=== PATIENT | male | born 1970 | race Caucasian/White ===

== ENCOUNTER 2021-05-01 08:27 | Emergency (ER) | payer SELFPAY ==
[~2021-05-01] VITALS: Ht 177.8 cm; Wt 73.0 kg
--- NOTE | 2021-05-01 08:29 | NUR ---
TO ER BED 9, BIBRA [address] FRM HOME, ALTERED MENTAL STATE. AUNT CALLED PARAMEDICS FOR POSSIBLE METH USE. NON VERBAL, RESPONSE TO PAIN, CONNECTED TO MONITOR, MD AT BEDSIDE FOR EVAL
--- NOTE | 2021-05-01 08:41 | NUR ---
IV ESTABLISHED L AC 20G. LABS COLLECTED AND SENT. CONVERTED TO SALINE LOCK
--- NOTE | 2021-05-01 08:48 | NUR ---
URINE SAMPLE COLLECTED AND SENT
[2021-05-01 09:06] LABS: BASOPHILS % (AUTO) 0.4 % (0.0-2.0); EOSINOPHILS % (AUTO) 0.6 % (0.0-6.0); HEMATOCRIT 39 % (39-51); HEMOGLOBIN 13.2 g/dL (13.5-17.5); MEAN CORPUSCULAR HGB CONC 34 g/dl (31.0-36.0); MEAN CORPUSCULAR VOLUME 99 fL (80-96); MONOCYTES # (AUTO) 0.8 K/uL (0.1-1.30); MONOCYTES % (AUTO) 10.1 % (2.0-12.0); NEUTROPHILS # (AUTO) 5.6 K/uL (1.8-8.9); NEUTROPHILS % (AUTO) 74.9 % (43.0-81.0); PLATELET COUNT (AUTO) 354 K/uL (150-450); RED BLOOD CELL COUNT(AUTO) 3.98 MIL/uL (4.5-6.0); WHITE BLOOD COUNT (AUTO) 7.5 K/uL (4.3-11.0)
[2021-05-01 09:13] LABS: BILIRUBIN,URINE SMALL (NEGATIVE); COLOR,URINE YELLOW (YELLOW); LEUKOCYTE ESTERASE ,URINE NEGATIVE (NEGATIVE); NITRITE, URINE NEGATIVE (NEGATIVE); PH,URINE 5.5 (5.0-8.0); PROTEIN,URINE TRACE mg/dl (NEGATIVE); UGLUCOSE NEGATIVE (NEGATIVE)
--- NOTE | 2021-05-01 09:15 | NUR ---
Chetan bennett in [facility] - 05/01/21 at 0922 by ASHLY COVID TEST COLLECTED AND SENT
--- NOTE | 2021-05-01 09:18 | NUR ---
COVID SWAB DONE AND SENT TO LAB
[2021-05-01 09:35] LABS: ALANINE AMINOTRANSFERASE 70 U/L (12-78); ALBUMIN 3.7 g/dL (3.4-5.0); ALCOHOL, BLOOD < 3 mg/dL (0-0); ALKALINE PHOSPHATASE 56 U/L (46-116); ASPARTATE AMINOTRANSFERASE 79 U/L (15-37); BILIRUBIN,DIRECT 0.1 mg/dL (0.0-0.2); BILIRUBIN,TOTAL 0.5 mg/dL (0.2-1.0); CALCIUM, SERUM 8.5 mg/dL (8.5-10.1); CARBON DIOXIDE 25 mmol/L (21-32); CHLORIDE 104 mmol/L (98-107); GLUCOSE 105 mg/dL (74-106); POTASSIUM 3.5 mmol/L (3.5-5.1); SODIUM SERUM 139 mmol/L (136-145); TOTAL PROTEIN, SERUM 7.4 g/dL (6.4-8.2); UREA NITROGEN, BLOOD 17 mg/dL (7-18)
[2021-05-01 09:36] LABS: ACETAMINOPHEN 0 ug/ml (10-30)
[2021-05-01 09:43] LABS: BACTERIA,URINE Rare /HPF (None Seen); SQUAMOUS EPITHELIAL CELL,UR Rare /HPF (None Seen)
[2021-05-01 09:44] LABS: MUCUS,URINE Few /LPF (None Seen)
[2021-05-01] MEDS ORDERED: NALOXONE PREFILLED SYRINGE 2 MG/2 ML SYRINGE ONE (09:57)
[2021-05-01] MEDS ORDERED: NALOXONE HCL 0.4 MG/ML AMPUL IV ONE (10:00)
--- NOTE | 2021-05-01 10:02 | NUR ---
JACOBO MOM AT BEDSIDE
--- NOTE | 2021-05-01 10:27 | NUR ---
PT TAKEN TO CT VIA BOOM
--- NOTE | 2021-05-01 13:04 | NUR ---
PT IS AWAKE, A&OX2 DR RIVERA HAS BEEN NOTIFIED.
--- NOTE | 2021-05-01 14:42 | NUR ---
IV removed. Catheter intact and site benign. Pressure and 4x4 applied to site. No bleeding noted.Patient discharged to home in stable condition. Written and verbal after care instructions given. Patient verbalizes understanding of instruction.
[2021-05-01 14:49] VITALS: BP 127/64
== END 2021-05-01 14:49 | disposition home or self-care (01) ==
LOC: ER 08:29
DX: R41.82 Altered mental status, unspecified (principal); F15.10 Other stimulant abuse, uncomplicated; D64.9 Anemia, unspecified; Z20.822 Contact with and (suspected) exposure to COVID-19
CPT/HCPCS: 36415; 70450; 80048; 80076; 80143; 80307; 80320; 81001; 85025; 87426; 96374; 99285; C9803; J2310; G0480